=== PATIENT | female | born 1970 | race Caucasian/White ===

== ENCOUNTER → 2016-04-05 | Outpatient (CLI) | payer OTHER ==
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
== END | disposition home or self-care (01) ==
LOC: KCIC CT 15:12
PROVIDERS: ATTEND Orthopaedic Surgery
DX: S42.302A Unspecified fracture of shaft of humerus, left arm, initial encounter for closed fracture (principal)
CPT/HCPCS: 73200

== ENCOUNTER → 2017-09-18 | Day surgery (SDC) | payer OTHER ==
[~2017-09-18] MED LIST: EPINEPHrine 1 MG/ML VIAL; IV RINGERS,LACTATED 1000ML 1,000 ML IV; LIDOCAINE 1% PF 2 ML VIAL. ID; MIDAZOLAM HCL/PF 2 MG/2 ML VIAL. IV; PROPOFOL 20 ML IV; fentaNYL PF VIAL 100 MCG/2 ML VIAL IV
[2017-09-18] MEDS: ALBUTEROL SULFATE 2.5 MG/3 ML NEBU. NEB (12:45)
[2017-09-18 12:49] LABS: ADD MAN DIFF? NO
[2017-09-18 12:50] LABS: BASO # 0.1 x10^3/uL (0.0-0.2); BASO % 1 % (0-3); EOS # 0.2 x10^3/uL (0.0-0.7); EOS % 4 % (0-3); HEMATOCRIT 30.4 % (36.0-47.0); LYMPH # 1.2 x10^3/uL (1.0-4.8); LYMPH % 24 % (24-48); MEAN CORPUSCULAR HEMOGLOBIN 28 pg (25-35); MEAN CORPUSCULAR HGB CONC 33 g/dL (31-37); MEAN CORPUSCULAR VOLUME 86 fL (79-100); MONO # 0.3 x10^3/uL (0.0-1.1); MONO % 7 % (0-9); NEUT # 3.1 x10^3uL (1.8-7.7); NEUT % 64 % (31-73); PLATELET COUNT 179 x10^3/uL (140-400); RED BLOOD COUNT 3.54 x10^6/uL (3.50-5.40); RED CELL DISTRIBUTION WIDTH 13.1 % (11.5-14.5); WHITE BLOOD COUNT 4.8 x10^3/uL (4.0-11.0)
[2017-09-18 13:04] LABS: INR 1.2 (0.8-1.1); PROTHROMBIN TIME PATIENT 14.3 SEC (11.7-14.0)
[2017-09-18 13:05] LABS: PARTIAL THROMBOPLASTIN TIME 26 SEC (24-38)
[2017-09-18 14:15] LABS: POC GLUCOSE 71 mg/dL (70-99)
[2017-09-18 14:15] LABS: POC GLUCOSE 72 mg/dL (70-99)
== END | disposition home or self-care (01) ==
LOC: SURG 11:45
DX: R91.8 Other nonspecific abnormal finding of lung field (principal); R59.0 Localized enlarged lymph nodes; I10 Essential (primary) hypertension; E11.9 Type 2 diabetes mellitus without complications; N28.9 Disorder of kidney and ureter, unspecified; Z90.49 Acquired absence of other specified parts of digestive tract; Z98.890 Other specified postprocedural states; E78.00 Pure hypercholesterolemia, unspecified; E66.9 Obesity, unspecified; M19.90 Unspecified osteoarthritis, unspecified site; Z96.612 Presence of left artificial shoulder joint; D64.9 Anemia, unspecified; Z79.01 Long term (current) use of anticoagulants; Z79.84 Long term (current) use of oral hypoglycemic drugs
CPT/HCPCS: 31622; 31624; 36415; 82962; 85025; 85610; 85730; 87070; 88112; J0171; J2704; J7613

== ENCOUNTER 2017-12-21 08:56 | Outpatient (CLI) | payer OTHER ==
[2017-12-21] VITALS (11 sets, daily range): BP systolic 145–189; BP diastolic 74–94
[~2017-12-21] VITALS: Ht 162.6 cm; Wt 122.5 kg
[~2017-12-21 08:56] MED LIST changes: +BUPR100T11 PO; +DILT240C2 PO; -EPINEPHrine 1 MG/ML VIAL; +FENO145T30 PO; +INSU100V8 SQ; -IV RINGERS,LACTATED 1000ML 1,000 ML IV; -LIDOCAINE 1% PF 2 ML VIAL. ID; +LINA5TAB4 PO; +LISI-334 PO; -MIDAZOLAM HCL/PF 2 MG/2 ML VIAL. IV; -PROPOFOL 20 ML IV; +PROVENTIL HFA6.7 GM IH; +SODI650T PO; -fentaNYL PF VIAL 100 MCG/2 ML VIAL IV
[2017-12-21] MEDS ORDERED: LIDOCAINE 1% PF 2 ML VIAL. ONE (09:29)
[2017-12-21 09:33] LABS: HEMATOCRIT 31.7 % (36.0-47.0); HEMOGLOBIN 10.9 g/dL (12.0-15.5); RED BLOOD COUNT 3.75 x10^6/uL (3.50-5.40); RED CELL DISTRIBUTION WIDTH 13.2 % (11.5-14.5); WHITE BLOOD COUNT 7.1 x10^3/uL (4.0-11.0)
[2017-12-21 09:42] LABS: PROTHROMBIN TIME PATIENT 13.7 SEC (11.7-14.0)
[2017-12-21 09:59] LABS: CALCIUM 9.3 mg/dL (8.5-10.1); CREATININE 2.2 mg/dL (0.6-1.0); GFR 23.8; POTASSIUM 4.8 mmol/L (3.5-5.1)
[2017-12-21] MEDS ORDERED: CRESTOR20 MG PO (10:15)
[2017-12-21] MEDS ORDERED: ERGO500027 PO (10:15)
[2017-12-21] MEDS ORDERED: ASPI-630 PO (10:15)
[2017-12-21] MEDS ORDERED: FERR325T14 PO (10:15)
[2017-12-21] MEDS ORDERED: PENT400T4 PO (10:15)
[2017-12-21] MEDS ORDERED: ACET500T68 PO (10:15)
[2017-12-21] MEDS ORDERED: MIDAZOLAM HCL/PF 5 MG/5 ML VIAL. ONE (10:18)
[2017-12-21] MEDS ORDERED: VERAPAMIL 5 MG/2 ML VIAL. ONE (10:18)
[2017-12-21] MEDS ORDERED: fentaNYL PF VIAL 100 MCG/2 ML VIAL ONE (10:18)
[2017-12-21] MEDS ORDERED: HEPARIN for IV BOLUS 10,000 UNIT/10 ML VIAL. ONE (10:19)
[2017-12-21] MEDS ORDERED: NITROGLYCERIN 200 MCG/2 ML SYRINGE FOR CATH/VASC LAB. ONE (10:19)
[2017-12-21] MEDS ORDERED: IODIXANOL 320 MG/ML 100 ML VIAL. ONE (10:20)
[2017-12-21] MEDS ORDERED: fentaNYL PF VIAL 100 MCG/2 ML VIAL IV ONE (11:00)
[2017-12-21] MEDS ORDERED: HEPARIN for IV BOLUS 10,000 UNIT/10 ML VIAL. IART ONE (11:00)
[2017-12-21] MEDS ORDERED: NITROGLYCERIN 200 MCG/2 ML SYRINGE FOR CATH/VASC LAB. IART ONE (11:00)
[2017-12-21] MEDS ORDERED: IV NORMAL SALINE 1000ML BAG 1,000 ML IV SCH (11:00)
[2017-12-21] MEDS ORDERED: CONTRAST GIVEN. MC PRN (11:00)
[2017-12-21] MEDS ORDERED: MIDAZOLAM HCL/PF 5 MG/5 ML VIAL. IV ONE (11:00)
[2017-12-21] MEDS ORDERED: VERAPAMIL 5 MG/2 ML VIAL. IART ONE (11:00)
[2017-12-21] MEDS ORDERED: LIDOCAINE 1% PF 2 ML VIAL. INJ ONE (11:00)
[2017-12-21] MEDS ORDERED: IODIXANOL 320 MG/ML 100 ML VIAL. IART ONE (11:00)
[2017-12-21] MEDS ORDERED: IV 1/2 NORMAL SALINE 1,000 ML IV SCH (11:06)
--- NOTE | 2017-12-21 11:06 | PDOC ---
MODERATE SEDATION ASSESSMENT RISKS/ALTERNATIVES Risks/Alternatives Risks and alternatives of this type of sedation and procedure discussed with: RISK/ALTERNATIVES: Patient H & P ON CHART H & P H & P on chart and reviewed for co-morbid conditions and appropriate labs. H&P ON CHART: Yes STATUS PREG STATUS ASSESSED: N/A MEDS/ALLERGIES REVIEWED Meds/Allergies Reviewed Medications and Allergies including time and route of recently administered narcotics and sedatives. MEDS/ALLERGIES REVIEWED: Yes ASA RATING ASA RATING: II AIRWAY ASSESSMENT Airway Assessment Airway patency, oral function limitations, presence of caps, crowns, dentures, partials, and ability to extend neck assessed. AIRWAY ASSESSMENT: Yes MALLAMPATI SCORE MALLAMPATI SCORE: II PRE-SEDATION ASSESSMENT PRE-SEDATION ASSESSMENT: Yes STACEY CAMPOVERDE MD Dec 21, 2017 11:06
[2017-12-21] MEDS ORDERED: NITROGLYCERIN SUBLINGUAL 0.4 MG BOTTLE OF 25. SL PRN (11:15)
--- NOTE | 2017-12-21 11:26 | CARD ---
MR#: [id number] Date of Study: 12/21/2017 Ordering Physician: STACEY YUAN, Referring Physician: STACEY YUAN Tech: RT Anais (R) APPROVED REPORT Technologist: RT Anais (R) Nurse: Shruthi Vasques R.N. Procedure(s) performed: Left heart catheterization and selective coronary angiography via right trans radial approach Moderate sedation: 24 Minutes INDICATION The indication(s) include : Dyspnea and positive stress test. PROCEDURE NARRATIVE After explaining the risks, benefits and alternative options, informed consent was obtained from ebony ent. Patient was brought to the cardiac [facility] and right wrist was prepped and draped in the usual fashion after confirming a positive modified Bryson's test. Arterial access was obtained in the righ t radial artery and a 6 Swedish sheath was inserted. 6 Swedish Manny catheter was used to perform georgina ective angiography of the left and right coronary arteries. LVEDP and transaortic gradients remeasure d. Left ventriculography was not performed due to elevated creatinine level. Patient tolerated the p rocedure well. Hemostasis was achieved using TR band. There were no immediate complications. The f ollowing findings were noted. FINDINGS 1. Hemodynamics: Left ventricular end-diastolic pressure of 17 mmHg. No pullback gradient across th e aortic valve. 2. Coronary angiography: a. The left main coronary artery arose from the left sinus of Valsalva, gave rise to the left anteri or descending and left circumflex arteries and did not show any significant stenosis. b. The left anterior descending artery did not show any significant stenosis. c. The left circumflex artery did not show any significant stenosis. d. The right coronary artery was a large and dominant vessel arising from the right sinus of Valsalv a that did not show any significant stenosis. Conclusion No significant coronary artery disease Recommendations Cardiac Risk Reduction Program Signed by : Stacey Yuan, Electronically Approved : 12/21/2017 11:24:08
== END 2017-12-21 14:00 | disposition home or self-care (01) ==
LOC: CCL 08:56
PROVIDERS: ATTEND Internal Medicine Cardiovascular Disease
DX: R94.39 Abnormal result of other cardiovascular function study (principal); Z79.01 Long term (current) use of anticoagulants
CPT/HCPCS: 36415; 80048; 85027; 85610; 93458; 99152; 99153; C1769; C1892; J1644; J2250; J3010; J3490; Q9967

== ENCOUNTER → 2018-11-22 | Outpatient (CLI) | payer OTHER ==
[2017-12-21 13:15] VITALS: BP 189/84
[~2018-11-22] MED LIST changes: +ACET500T68 PO; +ALBU2.5V8 IH; +ASPI-630 PO; +CRESTOR20 MG PO; +ERGO500027 PO; +FERR325T14 PO; +LINA5TAB PO; -LINA5TAB4 PO; +PENT400T7 PO; -PROVENTIL HFA6.7 GM IH
--- NOTE | 2018-11-22 15:03 | CARD ---
MR#: [id number] Date of Study: 11/22/2018 Ordering Physician: AVELINO MALONE, Referring Physician: AVELINO MALONE, Tech: Emily Delaney APPROVED REPORT EXAM: Two-dimensional and M-mode echocardiogram with Doppler and color Doppler. Other Information Quality : AverageHR: 69bpm Rhythm : NSRTechnically limited study due to body habitus. INDICATION Hypertension/HCVD RISK FACTORS Hypertension Hyperlipidemia Diabetes 2D DIMENSIONS RVDd3.5 (2.9-3.5cm)Left Atrium(2D)3.4 (1.6-4.0cm) IVSd1.2 (0.7-1.1cm)Aortic Root(2D)3.3 (2.0-3.7cm) LVDd6.2 (3.9-5.9cm)LVOT Diameter2.1 (1.8-2.4cm) PWd1.2 (0.7-1.1cm)LVDs2.8 (2.5-4.0cm) FS (%) 54.3 %SV162.6 ml LVEF(%)84.3 (>50%) Aortic Valve AoV Peak Jose.157.3cm/sAoV VTI35.9cm AO Peak GR.9.9mmHgLVOT Peak Jose.117.8cm/s LVOT VTI 26.97cmAO Mean GR.6mmHg YUDITH (VMAX)1.86zw7UHF (VTI)2.66cm2 Mitral Valve MV E Zzoorekk824.9cm/sMV DECEL UFHL036eb MV A Pflfqfci33.6cm/sMV NJF14tz E/A Ratio1.3MVA (PHT)3.95cm2 TDI E/Lateral E'13.0E/Medial E'18.3 Pulmonary Valve PV Peak Mahknyrd945.7cm/sPV Peak Grad.5mmHg Tricuspid Valve TR P. Okkypfhh542tr/sRAP [id number] TR Peak Gr.72xmKfLPRE89qaWz Pulmonary Vein S1 Iswcphyq36.7cm/sD2 Phunbpbn27.5cm/s PVa mqwfxgtv471znbv LEFT VENTRICLE The Left Ventricle is mildly dilated. There is mild concentric left ventricular hypertrophy. The left ventricular systolic function is normal. The Ejection Fraction is 55-60%. There is normal LV segment al wall motion. The left ventricular diastolic function and filling is normal for age. RIGHT VENTRICLE The right ventricle is mildlydilated. There is normal right ventricular wall thickness. The right tasneem tricular systolic function is normal. ATRIA The left atrium is mildly dilated. The right atrium is borderline dilated. The interatrial septum is intact with no evidence for an atrial septal defect or patent foramen ovale as noted on 2-D or Dopple r imaging. AORTIC VALVE The aortic valve is normal in structure and function. Doppler and Color Flow revealed no significant aortic regurgitation. There is no significant aortic valvular stenosis. MITRAL VALVE The mitral valve is normal in structure and function. There is no evidence of mitral valve prolapse. There is no mitral valve stenosis. Doppler and Color-flow revealed trace mitral regurgitation. TRICUSPID VALVE The tricuspid valve is normal in structure and function. Doppler and Color Flow revealed no tricuspid valve regurgitation noted. There is no tricuspid valve stenosis. PULMONIC VALVE The pulmonic valve is not well visualized. Doppler and Color Flow revealed trace pulmonic valvular re gurgitation. GREAT VESSELS The aortic root is normal in size. The IVC is normal in size and collapses >50% with inspiration. PERICARDIAL EFFUSION There is no evidence of significant pericardial effusion. Critical Notification Critical Value: No <Conclusion> The left ventricular systolic function is normal. The Ejection Fraction is 55-60%. There is normal LV segmental wall motion. Doppler and Color-flow revealed trace mitral regurgitation. There is no evidence of significant pericardial effusion. Signed by : Solo Yuan, Electronically Approved : 11/22/2018 15:03:15
== END | disposition home or self-care (01) ==
LOC: ECHO 12:48
PROVIDERS: ATTEND Internal Medicine Cardiovascular Disease
DX: I11.9 Hypertensive heart disease without heart failure (principal)
CPT/HCPCS: 93306

== ENCOUNTER 2019-03-07 06:51 | Outpatient (CLI) | payer OTHER ==
[2019-03-07] VITALS (7 sets, daily range): BP systolic 116–149; BP diastolic 63–83
[~2019-03-07] VITALS: Ht 162.6 cm; Wt 145.1 kg
[~2019-03-07 06:51] MED LIST changes: -ALBU2.5V8 IH; +PROVENTIL HFA6.7 GM IH
[2019-03-07] MEDS ORDERED: LOSA1TAB19 PO (07:25)
[2019-03-07] MEDS ORDERED: LABE200T4 PO (07:25)
[2019-03-07] MEDS ORDERED: AMLO10TA8 PO (07:25)
[2019-03-07 07:37] LABS: BASO % 1 % (0-3); EOS # 0.2 x10^3/uL (0.0-0.7); EOS % 5 % (0-3); HEMATOCRIT 29.8 % (36.0-47.0); HEMOGLOBIN 9.7 g/dL (12.0-15.5); LYMPH # 0.7 x10^3/uL (1.0-4.8); LYMPH % 19 % (24-48); MEAN CORPUSCULAR HEMOGLOBIN 30 pg (25-35); MEAN CORPUSCULAR HGB CONC 33 g/dL (31-37); MEAN CORPUSCULAR VOLUME 93 fL (79-100); MONO # 0.3 x10^3/uL (0.0-1.1); MONO % 8 % (0-9); NEUT # 2.7 x10^3/uL (1.8-7.7); NEUT % 68 % (31-73); PLATELET COUNT 159 x10^3/uL (140-400); RED BLOOD COUNT 3.22 x10^6/uL (3.50-5.40); RED CELL DISTRIBUTION WIDTH 13.7 % (11.5-14.5)
[2019-03-07 07:55] LABS: CALCIUM 8.4 mg/dL (8.5-10.1); CREATININE 2.3 mg/dL (0.6-1.0); GFR 22.5; POTASSIUM 5.1 mmol/L (3.5-5.1)
[2019-03-07 08:01] LABS: ALBUMIN 3.6 g/dL (3.4-5.0); ALBUMIN/GLOBULIN RATIO 1.4 (1.0-1.7); TOTAL BILIRUBIN 0.4 mg/dL (0.2-1.0); TOTAL PROTEIN 6.1 g/dL (6.4-8.2)
[2019-03-07] MEDS ORDERED: LIDOCAINE WITH 8.4% SOD BICARB 3 ML DISP.SYRIN. ONE (08:01)
[2019-03-07] MEDS ORDERED: fentaNYL PF VIAL 100 MCG/2 ML VIAL ONE (08:55)
[2019-03-07] MEDS ORDERED: MIDAZOLAM HCL/PF 2 MG/2 ML VIAL. ONE (08:55)
[2019-03-07] MEDS ORDERED: LIDOCAINE WITH 8.4% SOD BICARB 3 ML DISP.SYRIN. IJ ONE (09:15)
[2019-03-07] MEDS ORDERED: MIDAZOLAM HCL/PF 2 MG/2 ML VIAL. IV ONE (09:15)
[2019-03-07] MEDS ORDERED: fentaNYL PF VIAL 100 MCG/2 ML VIAL IV ONE (09:15)
--- NOTE | 2019-03-07 09:36 | RAD ---
CT-guided bone marrow biopsy. 03/07/2019 7:32 AM Indication: Iron Deficiency Anemia Discussion: The risks and benefits of the procedure, including but not limited to, bleeding and infection were discussed patient. Informed consent was obtained. The patient was brought to the CT scanner and placed in the prone position. A timeout procedure was performed. [facility] imaging of the pelvis demonstrated left ilium amenable to bone marrow biopsy. The overlying soft tissues were prepped and draped using maximum sterile barrier technique. 1% lidocaine without epinephrine was administered for local anesthesia. Under intermittent CT guidance, an OncControl needle was advanced into the bone marrow of the left iliac crest. 2 Aspirates and 1 core biopsy samples were obtained. Samples were delivered to pathology was present at the time of procedure. The needle was removed and manual pressure held to achieve hemostasis. No immediate complications were identified. The procedure was performed under conscious sedation including continuous cardiopulmonary monitoring via dedicated sedation nurse. [id number] conscious sedation time: 15 minutes Impression: Successful CT-guided bone marrow biopsy of the left iliac crest . PQRS Compliance Statement: One or more of the following individualized dose reduction techniques were utilized for this examination: 1. Automated exposure control 2. Adjustment of the mA and/or kV according to patient size 3. Use of iterative reconstruction technique
[2019-03-07 09:39] LABS: % EOS 3 % (0-5); % LYMPHS 12 % (24-48); % MONOS 8 % (0-10); % SEGS 77 % (35-66); NUCLEATED RBC 1; PLT ESTIMATE ADEQUATE (ADEQUATE)
[2019-03-07 09:40] LABS: ANISOCYTOSIS SLIGHT
--- NOTE | 2019-03-07 10:16 | NUR ---
pt discharged to home. instructions reviewed. pt ambulated and tolerated PO. PIV dc'd
== END 2019-03-07 10:20 | disposition home or self-care (01) ==
LOC: INTRAD 06:51
PROVIDERS: ATTEND Internal Medicine Hematology & Oncology
DX: D64.9 Anemia, unspecified (principal); Z79.01 Long term (current) use of anticoagulants
CPT/HCPCS: 36415; 38222; 77012; 80053; 85025; 85610; 88184; 88185; 88237; 99152; J2250; J3010; 85007